=== PATIENT | male | born 1995 | race Caucasian/White ===

== ENCOUNTER 2021-01-31 21:41 | Emergency (ER) | payer BC ==
[2021-01-31 21:50] VITALS: PULSE 71; RESP 18
[2021-01-31] MEDS ORDERED: LIDOCAINE 1% INJ 10MG/ML (20 ML MDV) SQ ONE (22:09)
--- NOTE | 2021-01-31 23:13 | ED ---
Skin/Abscess/FB HPI - General Chief complaint: Skin/Abscess/Foreign Body Stated complaint: Cellulitis Time Seen by Provider: 01/31/21 21:52 Source: patient Mode of arrival: ambulatory - History of Present Illness Initial comments: Patient is a 25-year-old male presenting to the emergency Department with complaints of an abscess on his right lower leg. Patient states it's been going on for about a week, he noticed some redness about a week ago, started increasing over the next few days so he contacted his doctor who started him on Bactrim. He is currently on day 5 of Bactrim. Over the last 1-2 days, patient states he noticed an abscess forming in the center of the redness. He denies any fevers or chills, no nausea or vomiting. He states that the area is trying to drain from her has been unsuccessful. He has increased pain with walking. He has no further complaints at this time. Upon arrival to the ER his vitals are stable. - Related Data Previous Rx's Medication Instructions Recorded Cephalexin [Keflex] 500 mg PO Q6HR 7 Days #28 cap 01/31/21 Allergies Allergy/AdvReac Type Severity Reaction Status Date / Time No Known Allergies Allergy Verified 01/31/21 21:50 Review of Systems ROS Statement: Those systems with pertinent positive or pertinent negative responses have been documented in the HPI. ROS Other: All systems not noted in ROS Statement are negative. Past Medical History Past Medical History: No Reported History History of Any Multi-Drug Resistant Organisms: None Reported Past Surgical History: No Surgical Hx Reported Past Psychological History: No Psychological Hx Reported Smoking Status: Never smoker Past Alcohol Use History: None Reported Past Drug Use History: None Reported General Exam - General Exam Comments Initial Comments: GENERAL: Patient is well-developed and well-nourished. Patient is nontoxic and in no acute distress. HEAD: Atraumatic, normocephalic. EYES: Pupils equal round and reactive to light, extraocular movements intact, sclera anicteric, conjunctiva are normal. Eyelids were unremarkable. ENT: Moist mucous membranes. NECK: Normal range of motion, supple without lymphadenopathy or JVD. LUNGS: Unlabored respirations. Breath sounds clear to auscultation bilaterally and equal. No wheezes rales or rhonchi. HEART: Regular rate and rhythm without murmurs, rubs or gallops. ABDOMEN: Soft, nontender, normoactive bowel sounds. No guarding, no rebound. No masses appreciated. : Deferred MUSCULOSKELETAL: Normal extremities with adequate strength and normal range of motion, no pitting or edema. No clubbing or cyanosis. NEUROLOGICAL: Patient is alert and oriented x 3. SKIN: Warm, Dry, normal turgor. Patient has a 2 cm abscess of the right lower leg, anterior aspect. There is some mild surrounding erythema. This area is fluctuant, indurated around the abscess. 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, Site, Procedure, Consent Site: right anterior lower leg Site Marked: Yes Site Verified With Patient/Guardian: Yes Final Confirmation: Procedure, Site, Confirmed w/Provider - Incision & Drainage Consent Obtained: verbal consent, written consent Indication: Abscess Site: lower extremity (Right lower leg, anterior aspect) Size (cm): 2 Anesthetic Used: lidocaine 1% Amount (mLs): 3 I&D Cleaning Method: Alcohol Wipe Scalpel Used: #11 I&D Drainage Obtained: Pus, Blood Culture Obtained?: No Patient Tolerated Procedure: well Medical Decision Making - Medical Decision Making Patient is a 25-year-old male presenting with a 2 cm abscess to his right lower leg, anterior aspect. He is already on Bactrim, has been on it for 5 days. There is some mild surrounding erythema. Patient did consent for I&D of ab scess. This was performed, large amount of purulent fluid was drained. He does report improvement of symptoms. I will add on Keflex to his antibiotics. He is stable for discharge. Return parameters were discussed with him and he verbalized understanding. Case discussed Dr. Henao. Disposition Clinical Impression: Abscess of right lower leg, Cellulitis of right lower leg Disposition: HOME SELF-CARE Condition: Stable Instructions (If sedation given, give patient instructions): Abscess Incision and Drainage (ED) Additional Instructions: Please return to the Emergency Department if symptoms worsen or any other concerns. Continue and finish your Bactrim. Add on Keflex as directed. Apply warm compresses to the abscessed area, to allow for drainage. Follow-up with your PCP. Prescriptions: Cephalexin [Keflex] 500 mg PO Q6HR 7 Days #28 cap Is patient prescribed a controlled substance at d/c from ED?: No Referrals: Hilary Paul DO [Primary Care Provider] - 1-2 days Time of Disposition: 23:13
[2021-01-31 23:42] VITALS: BP 158/94; TEMP 98.2
== END 2021-01-31 23:42 | disposition home or self-care (01) ==
LOC: EC 21:41
DX: L02.415 Cutaneous abscess of right lower limb (principal); L03.115 Cellulitis of right lower limb
CPT/HCPCS: 99283; 10060; J2001

== ENCOUNTER 2021-02-04 16:46 | Emergency (ER) | payer BC ==
--- NOTE | 2021-02-04 18:23 | ED ---
Recheck HPI - General Source: patient Mode of arrival: ambulatory Limitations: no limitations <Angela Julien - Last Filed: 02/04/21 19:02> <Thierry Rose - Last Filed: 02/04/21 19:48> - General Chief Complaint: Recheck/Abnormal Lab/Rx Stated Complaint: Spider bite on right leg Time Seen by Provider: 02/04/21 17:20 - History of Present Illness Initial Comments: Patient is a 25-year-old male presenting to the emergency Department for recheck of an abscess on his right lower leg. Patient was seen here on Monday, 4 days ago, had an I&D. Patient was also started on Keflex at that time. He has already been on the Bactrim, he will finish a 10-day course tomorrow. Patient is stating that his pain has improved, he has no pain with walking, he denies any fevers or chills. He states the area still has been draining. The erythema surrounding the wound has also improved. Patient's mother would like a recheck and is concerned for how deep the wound looks. She is concerned for a possible spider bite. Patient denies any chest pain or shortness of breath, no nausea or vomiting. No fevers or chills. He has no further complaints. Upon arrival to the ER his vitals are stable. (Angela Julien) - Related Data Home Medications Medication Instructions Recorded Confirmed Cephalexin [Keflex] 500 mg PO QID 02/04/21 02/04/21 SILVER sulfADIAZINE Cream 1 applic TOPICAL BID 02/04/21 02/04/21 [Silvadene 1% Cream] Previous Rx's Medication Instructions Recorded Silver Sulfadiazine 1 applic TOPICAL DAILY 7 Days #50 02/04/21 gm Sulfamethox-Tmp 800-160Mg [Bactrim 1 tab PO BID 10 Days #20 tab 02/04/21 DS 800-160 mg] Allergies Allergy/AdvReac Type Severity Reaction Status Date / Time No Known Allergies Allergy Verified 02/04/21 18:16 Review of Systems ROS Other: All systems not noted in ROS Statement are negative. <Angela Julien - Last Filed: 02/04/21 19:02> ROS Other: All systems not noted in ROS Statement are negative. <Thierry Rose - Last Filed: 02/04/21 19:48> ROS Statement: Those systems with pertinent positive or pertinent negative responses have been documented in the HPI. Past Medical History Past Medical History: No Reported History History of Any Multi-Drug Resistant Organisms: None Reported Past Surgical History: No Surgical Hx Reported Past Psychological History: No Psychological Hx Reported Smoking Status: Never smoker Past Alcohol Use History: None Reported Past Drug Use History: None Reported <Angela Julien - Last Filed: 02/04/21 19:02> General Exam Limitations: no limitations <Angela Julien - Last Filed: 02/04/21 19:02> - General Exam Comments Initial Comments: GENERAL: Patient is well-developed and well-nourished. Patient is nontoxic and in no acute distress. HEAD: Atraumatic, normocephalic. EYES: Pupils equal round and reactive to light, extraocular movements intact, sclera anicteric, conjunctiva are normal. Eyelids were unremarkable. LUNGS: Unlabored respirations. Breath sounds clear to auscultation bilaterally and equal. No wheezes rales or rhonchi. HEART: Regular rate and rhythm without murmurs, rubs or gallops. MUSCULOSKELETAL: Normal extremities with adequate strength and normal range of motion, no pitting or edema. No clubbing or cyanosis. NEUROLOGICAL: Patient is alert and oriented x 3. Normal speech, normal gait. PSYCH: Normal mood, normal affect. SKIN: Warm, Dry, normal turgor, no rashes. Patient has an approximate 2-3 cm open abscess in the area of the right lower leg, there is only very mild surrounding erythema, this is improvement from his visit 4 days ago. There is some mild drainage from the wound. No pain with palpation around the wound. (Angela Julien) Course Vital Signs 02/04/21 02/04/21 16:49 19:11 Temperature 98.1 F 98.4 F Pulse Rate 83 82 Respiratory 18 16 Rate Blood Pressure 143/73 137/77 O2 Sat by Pulse 98 98 Oximetry Medical Decision Making <Angeal Julien - Last Filed: 02/04/21 19:02> - Medical Decision Making Patient is a 25-year-old male here for recheck of an abscess on his right lower leg. We did perform an I&D to the area 4 days ago, he is on day 9 of 10 of bactrim, is also started on Keflex. No fevers, his vitals are stable. Area looks improved, patient has minimal pain surrounding the area, no fevers or chills. I did do an x-ray of the area which reveals no signs of osteomyelitis. Wound culture was obtained today. Glucose today is 98. We will extend Bactrim for another 10 days. Patient can follow up with the wound center. Patient is in agreement this plan of care and he is stable for discharge. Return parameters were discussed with him and he verbalized understanding. Case discussed with Dr. Rose. (Angela Julien) - Lab Data Lab Results 02/04/21 Range/Units 18:57 POC Glucose (mg/dL) 98 (75-99) mg/dL POC Glu Senior Shipping Clerk ID Denise Handley Disposition Is patient prescribed a controlled substance at d/c from ED?: No Time of Disposition: 18:56 <Angela Julien - Last Filed: 02/04/21 19:02> Is patient prescribed a controlled substance at d/c from ED?: No <Thierry Rose - Last Filed: 02/04/21 19:48> Clinical Impression: Abscess of right lower leg Disposition: HOME SELF-CARE Condition: Stable Instructions (If sedation given, give patient instructions): Abscess (ED) Additional Instructions: Please return to the Emergency Department if symptoms worsen or any other concerns. Continue with antibiotics as prescribed. May continue with heat around the wound. Follow-up with wound clinic: [phone] Prescriptions: Sulfamethox-Tmp 800-160Mg [Bactrim DS 800-160 mg] 1 tab PO BID 10 Days #20 tab Silver Sulfadiazine 1 applic TOPICAL DAILY 7 Days #50 gm Referrals: Hilary Paul DO [Primary Care Provider] - 1-2 days [facility] [NON-STAFF] - 1-2 days
[2021-02-04 18:59] LABS: Glucose,Whole Blood 98 mg/dL (75-99)
--- NOTE | 2021-02-04 19:11 | XR ---
EXAMINATION TYPE: XR tibia fibula RT DATE OF EXAM: 02/04/2021 CLINICAL HISTORY: Spider bite x 2 weeks ago. TECHNIQUE: Two views of the right leg are obtained. COMPARISON: None. FINDINGS: There is no acute fracture or dislocation seen in the right tibia or fibula. The right kn ee and ankle joints appear within normal limits. There are two subtle foci of gas in the region of interest. IMPRESSION: 1. There is no acute fracture or dislocation seen in the right tibia or fibula. 2. There are two subtle foci of gas in the region of interest. Correlate with ultrasound.
[2021-02-04 19:13] VITALS: BP 137/77; PULSE 82; RESP 16; TEMP 98.4
== END 2021-02-04 19:00 | disposition home or self-care (01) ==
LOC: EC 16:46
DX: L02.415 Cutaneous abscess of right lower limb (principal)
CPT/HCPCS: 36415; 87070; 87205; 99283